=== PATIENT | male | born 1945 | race Caucasian/White ===

== ENCOUNTER 2017-04-12 11:32 | Day surgery (SDC) | payer OTHER ==
[~2017-04-12 11:32] MED LIST: LEVOTHYROXINE100 MCG PO; OMEPRAZOLE20 MG PO; PROAIR HFA8.5 GM IH; TESSALON PERLE100 MG PO; ZITHROMAX250 MG PO
[2017-04-12] MEDS ORDERED: ASPIRIN81 M2 PO (11:52)
[2017-04-12] MEDS ORDERED: VITAMIN D2000 UNI1 PO (11:54)
[2017-04-12] MEDS ORDERED: VITAMIN B122500 MCG PO (11:55)
[2017-04-12 12:27] LABS: HEMATOCRIT 43.4 % (38.0-50.0); MCHC 32.3 G/DL (30.0-36.0); MCV 89.9 FL (86-99); MEAN PLAT.VOLUME 10.7 uM^3 (9.0-12.4); PLATELET COUNT 269 K/uL (156-360); RBC DIS.WIDTH-CV 14.2 % (11.8-14.6); RBC DIS.WIDTH-SD 47.1 % (39-53); RED BLOOD COUNT 4.83 M/uL (4.00-5.50); WHITE BLOOD COUNT 9.9 K/uL (4.1-10.2)
[2017-04-12 13:38] LABS: ANION GAP 9 MEQ/L (2-14); CHLORIDE 107 MEQ/L (99-109); GFR ESTIMATE (CALCULATED) > 59 mL/min/; GLUCOSE 92 mg/dL (70-99); POTASSIUM 4.7 MEQ/L (3.7-5.4); SAMPLE HEMOLYSIS CHECK 0; SAMPLE ICTERIC CHECK 0; SAMPLE LIPEMIA CHECK 0; SODIUM 140 MEQ/L (136-147); UREA NITROGEN (BUN) 15 mg/dL (9-23)
[2017-04-12 15:38] LABS: PROTHROMBIN TIME 11.4 SEC (10.2-12.9)
[2017-04-12 15:51] LABS: PTT 137.6 SEC (25-37)
[2017-04-12 19:32] VITALS: BP 117/69
[2017-04-12 22:00] LABS: PROTHROMBIN TIME 11.4 SEC (10.2-12.9)
[2017-04-12 22:09] LABS: PTT 49.5 SEC (25-37)
[2017-04-13 00:24] VITALS: BP 120/67
[2017-04-13 03:30] VITALS: BP 121/63
[2017-04-13 05:05] LABS: HEMATOCRIT 42.3 % (38.0-50.0); MCH 28.9 PG (29.0-34.0); MCHC 32.2 G/DL (30.0-36.0); MCV 89.8 FL (86-99); MEAN PLAT.VOLUME 10.5 uM^3 (9.0-12.4); PLATELET COUNT 274 K/uL (156-360); RBC DIS.WIDTH-CV 14.2 % (11.8-14.6); RBC DIS.WIDTH-SD 47.3 % (39-53); RED BLOOD COUNT 4.71 M/uL (4.00-5.50); WHITE BLOOD COUNT 10.9 K/uL (4.1-10.2)
== END 2017-04-13 06:15 | disposition short-term general hospital (02) ==
LOC: CATH 11:32 → 2SOUTH 14:14 → ENRESERV 14:16 → 2SOUTH 14:42 → ENRESERV 14:42 → 4EAST 17:24 → CATH 04-20 11:30
PROVIDERS: Internal Medicine Cardiovascular Disease
DX: I25.118 Atherosclerotic heart disease of native coronary artery with other forms of angina pectoris (principal); I35.0 Nonrheumatic aortic (valve) stenosis; J44.9 Chronic obstructive pulmonary disease, unspecified; Z79.82 Long term (current) use of aspirin
CPT/HCPCS: 80048; 85027; 85610; 85730; C1769; C1887; G0378; J1644; J2250; J3010; J7040

== ENCOUNTER 2018-03-22 22:37 | Emergency (ER) | payer OTHER ==
[~2018-03-22] VITALS: Ht 182.9 cm; Wt 105.9 kg
[~2018-03-22 22:37] MED LIST changes: +ASPIRIN81 M2 PO; +VITAMIN B122500 MCG PO; +VITAMIN D2000 UNI1 PO
[2018-03-22 23:26] LABS: BASOPHIL (%) 0.2 % (0-1); EOSINOPHIL (%) 2.2 % (0-5); EOSINOPHIL COUNT 0.3 K/uL (0-0.3); HEMATOCRIT 43.5 % (38.0-50.0); HEMOGLOBIN 14.3 G/DL (12.5-16.6); IMMATURE GRANULOCYTE (%) 0.3 % (0.0-0.7); LYMPHOCYTE (%) 15.2 % (15-42); LYMPHOCYTE COUNT 2.3 K/uL (1.0-2.8); MCH 29.3 PG (29.0-34.0); MCHC 32.9 G/DL (30.0-36.0); MCV 89.1 FL (86-99); MONOCYTE (%) 6.2 % (3-12); MONOCYTE COUNT 0.9 K/uL (0-0.8); NEUTROPHIL (%) 75.9 % (45-76); NEUTROPHIL COUNT 11.3 K/uL (1.8-6.4); PLATELET COUNT 294 K/uL (156-360); RBC DIS.WIDTH-CV 15.2 % (11.8-14.6); RBC DIS.WIDTH-SD 50.1 % (39-53); RED BLOOD COUNT 4.88 M/uL (4.00-5.50); WHITE BLOOD COUNT 14.9 K/uL (4.1-10.2)
[2018-03-22 23:36] LABS: ALBUMIN 4.3 g/dL (3.2-4.8)
[2018-03-22 23:37] LABS: CHLORIDE 103 mEq/L (99-109); POTASSIUM 4.4 mEq/L (3.7-5.4); SODIUM 140 mEq/L (136-147)
[2018-03-22 23:39] LABS: GLUCOSE 112 mg/dL (70-99); TOTAL PROTEIN 6.8 g/dL (6.4-8.3)
[2018-03-22 23:41] LABS: TOTAL BILIRUBIN 0.5 mg/dL (0.0-1.0)
[2018-03-22 23:42] LABS: ALKALINE PHOSPHATASE 95 IU/L (3-129)
[2018-03-22 23:43] LABS: GFR ESTIMATE (CALCULATED) > 59 mL/min/ (58.99-99999)
[2018-03-22 23:44] LABS: AST (GOT) 13 IU/L (2-34); DIRECT BILIRUBIN 0.2 mg/dL (0.0-0.3); UREA NITROGEN (BUN) 16 mg/dL (9-23)
[2018-03-22 23:46] LABS: ALT (GPT) 10 IU/L (3-49); LIPASE 4 U/L (1.0-51.0)
[2018-03-23 01:17] LABS: APPEARANCE CLEAR ((CLEAR)); BILIRUBIN NEGATIVE; BLOOD NEGATIVE; COLOR YELLOW ((YELLOW)); GLUCOSE (STRIP) NEGATIVE; KETONES NEGATIVE; LEUKOCYTES NEGATIVE; NITRITE NEGATIVE; PROTEIN (STRIP) NEGATIVE; SPECIFIC GRAVITY 1.027 (1.000-1.030); UROBILINOGEN 0.2 MG/DL (0.2-1.0)
[2018-03-23] MEDS ORDERED: ZOFRAN ODT8 MG PO (02:00)
[2018-03-23] MEDS ORDERED: BENTYL20 MG PO (02:00)
[2018-03-23 03:02] VITALS: BP 129/71
== END 2018-03-23 03:03 | disposition home or self-care (01) ==
LOC: EME 22:37
PROVIDERS: Physician Assistant
DX: R10.9 Unspecified abdominal pain (principal); R11.2 Nausea with vomiting, unspecified; R19.7 Diarrhea, unspecified; J44.9 Chronic obstructive pulmonary disease, unspecified; K21.9 Gastro-esophageal reflux disease without esophagitis; Z79.82 Long term (current) use of aspirin
CPT/HCPCS: 74177; 76705; 80048; 80076; 81003; 83690; 85025; 99281; 99285; J2405; J3010; J7030